=== PATIENT | female | born 1970 | race American Indian/Alaskan Native ===

== ENCOUNTER 2016-12-08 07:25 | Emergency (ER) | payer OTHER ==
[2016-12-08 07:45] VITALS: BMI 22.0
[2016-12-08] MEDS ORDERED: Sodium Chloride 0.9% 1,000 ML IV STA (07:45)
[2016-12-08 07:47] VITALS: RESP 18; TEMP 98
[2016-12-08 08:30] LABS: BASO # 0.1 K/uL (0.0-0.2); EOS # 0.1 K/uL (0.0-0.7); EOS % 1.2 % (0.0-4.0); HEMOGLOBIN 12.7 g/dL (12.0-16.0); LYMPH # 1.9 K/uL (1.0-4.3); LYMPH % 30.5 % (20.0-40.0); MEAN CELL VOLUME 83.5 fl (81.0-99.0); MEAN CORPUSCULAR HEMOGLOBIN 28.2 pg (27.0-31.0); MEAN CORPUSCULAR HGB CONC 33.8 g/dL (33.0-37.0); MEAN PLATELET VOLUME 8.6 fl (7.2-11.7); MONO # 0.5 K/uL (0.0-0.8); MONO % 7.8 % (0.0-10.0); NEUT # 3.7 K/uL (1.8-7.0); NEUT % 59.5 % (50.0-75.0); NRBC % 0.1 % (0.0-0.0); RBC 4.5 Mil/uL (3.80-5.20); RED CELL DISTRIBUTION WIDTH 13.4 % (11.5-14.5); WHITE BLOOD COUNT 6.2 K/uL (4.8-10.8)
[2016-12-08 08:43] LABS: ALB/GLOB RATIO 1.3 (1.0-2.1); ALBUMIN 4.1 g/dL (3.5-5.0); ALT/SGPT 26 U/L (9-52); AST/SGOT 23 U/L (14-36); BLOOD UREA NITROGEN 14 mg/dl (7-17); CALCIUM 9.7 mg/dL (8.4-10.2); GFR AFRICAN-AMERICAN > 60; GFR NON-AFRICAN AMERICAN > 60
[2016-12-08 08:56] VITALS: BP 128/76; PULSE 81; O2SAT 100
--- NOTE | 2016-12-08 09:04 | ED PDOC ---
Syncope/Near Syncope/Dizziness Time Seen by Provider: 12/08/16 07:29 Chief Complaint (Nursing): Dizziness/Lightheaded Chief Complaint (Provider): light headed History Per: Patient History/Exam Limitations: no limitations Additional Complaint(s): Aimee Myrick is a 46 year old female, with a previous medical history of diabetes and hypertension, who presents to the ED with complaints of dizziness associated with lightheadedness, mild headache and one episode of vomiting while at work this morning. She denies any diarrhea, abdominal pain, chest pain , shortness of breath, numbness, tingling or changes in vision. Patient reports experiencing similar symptoms one month ago and states to changing her hypertensive and diabetes medication approximately a month and a half ago. PMD: Dr. Campbell Past Medical History Reviewed: Historical Data, Nursing Documentation, Vital Signs Vital Signs: Last Vital Signs Temp 98 F 12/08/16 08:55 Pulse 81 12/08/16 08:55 Resp 18 12/08/16 08:55 BP 128/76 12/08/16 08:55 Pulse Ox 100 12/08/16 08:55 - Medical History PMH: Back Problems, Diabetes, HTN Denies: Depression, Chronic Kidney Disease - Surgical History Surgical History: - Family History Family History: States: Unknown Family Hx - Living Arrangements Living Arrangements: With Family - Social History Alcohol: None Drugs: Denies - Immunization History Hx Tetanus Toxoid Vaccination: No Hx Influenza Vaccination: Yes Hx Pneumococcal Vaccination: No - Home Medications Home Medications: Ambulatory Orders Medication Instructions Recorded Losartan/Hydrochlorothiazide 1 tab PO ONCE 08/22/14 [Losartan Potassium-Hydrochlorothiazide 12.5 M] Glimepiride 4 mg PO DAILY 07/27/15 Ibuprofen [Motrin] 400 mg PO Q6 #30 tab 03/01/16 - Allergies Allergies/Adverse Reactions: Allergies Allergy/AdvReac Type Severity Reaction Status Date / Time No Known Allergies Allergy Verified 11/22/15 20:42 Review of Systems ROS Statement: Except As Marked, All Systems Reviewed And Found Negative Eyes: Negative for: Vision Change Cardiovascular: Negative for: Chest Pain Respiratory: Negative for: Shortness of Breath Gastrointestinal: Positive for: Nausea, Vomiting. Negative for: Abdominal Pain , Diarrhea Neurological: Positive for: Headache, Dizziness. Negative for: Numbness, Other (tingling ) Physical Exam - Reviewed Nursing Documentation Reviewed: Yes Vital Signs Reviewed: Yes - Physical Exam Appears: Positive for: Well, Non-toxic, No Acute Distress Head Exam: Positive for: ATRAUMATIC, NORMAL INSPECTION, NORMOCEPHALIC Skin: Positive for: Normal Color, Warm, Dry Eye Exam: Positive for: Normal appearance, EOMI, PERRL. Negative for: Nystagmus ENT: Positive for: Normal ENT Inspection Neck: Positive for: Normal, Painless ROM Cardiovascular/Chest: Positive for: Regular Rate, Rhythm Respiratory: Positive for: CNT, Normal Breath Sounds Gastrointestinal/Abdominal: Positive for: Normal Exam, Bowel Sounds, Soft. Negative for: Tenderness Back: Positive for: Normal Inspection. Negative for: L CVA Tenderness, R CVA Tenderness Extremity: Positive for: Normal ROM. Negative for: Tenderness, Pedal Edema Neurologic/Psych: Positive for: Alert, spinning frame changer II-XII (intact ), Oriented. Negative for: Motor/Sensory Deficits, Facial Droop - Laboratory Results Result Diagrams: 12/08/16 08:00 12/08/16 08:00 Interpretation Of Abn Labs: 372 - ECG ECG: Positive for: Interpreted By Me, Viewed By Me ECG Rhythm: Positive for: Normal QRS, Sinus Rhythm, Nonspecific Changes Interpretation Of Abn EKG: similar to old O2 Sat by Pulse Oximetry: 100 (RA) Pulse Ox Interpretation: Normal - CT Scan/US head Other Rad Studies (CT/US): Read By Radiologist Other Rad Interpretation: no acute - Progress ED Course And Treament: 1047: Pt. stable. AAOx3. Smiling. Talking on the phone. Tolerated PO. Feels comfortable going home. Fu with pcp. Ambulated with no issues. No dizziness. 1123: Pt. pulled out IV by self. Will give insulin SC. Medical Decision Making Medical Decision Making: Initial Plan * CT head w/o contrast * EKG * urine dipstick * Urine * Antivert 20 mg PO * zofran 4 mg IV * IV NS 1,000 ml at 1,000 ml/hr * reevaluation 09:27 CT head FINDINGS: HEMORRHAGE: No intracranial hemorrhage. BRAIN: No mass effect or edema. No atrophy or chronic microvascular ischemic changes. VENTRICLES: Unremarkable. No hydrocephalus. CALVARIUM: Unremarkable. PARANASAL SINUSES: Unremarkable as visualized. No significant inflammatory changes. MASTOID AIR CELLS: Unremarkable as visualized. No inflammatory changes. OTHER FINDINGS: None. IMPRESSION: No intracranial mass, hemorrhage or evidence of acute infarct. Scribe Attestation: Documented by Leti Vann, acting as a scribe for Theron Weaver MD. Provider Scribe Attestation: All medical record entries made by the Scribe were at my direction and personally dictated by me. I have reviewed the chart and agree that the record accurately reflects my personal performance of the history, physical exam, medical decision making, and the department course for this patient. I have also personally directed, reviewed, and agree with the discharge instructions and disposition. Disposition - Clinical Impression Clinical Impression: Dizziness, Hyperglycemia - Patient ED Disposition Is Patient to be Admitted: No Counseled Patient/Family Regarding: Studies Performed, Diagnosis, Need For Followup - Disposition Referrals: [facility] [Outside] - 12/09/16 Disposition: Routine/Home Disposition Time: 10:48 Condition: STABLE Additional Instructions: Return if not better in 3 days. See your doctor today for follow up and further medication management of your diabetes. Instructions: Diabetic Hyperglycemia (ED), Dizziness (ED) Forms: [facility] ([place]), [facility] ED School/Work Excuse
--- NOTE | 2016-12-08 09:29 | CT ---
PROCEDURE: CT HEAD WITHOUT CONTRAST. HISTORY: headache COMPARISON: 12/17/2013 TECHNIQUE: Axial computed tomography images were obtained through the head/brain without intravenous contrast. Radiation dose: Total exam DLP = 857.65 mGy-cm. This CT exam was performed using one or more of the following dose reduction techniques: Automated exposure control, adjustment of the mA and/or kV according to patient size, and/or use of iterative reconstruction technique. FINDINGS: HEMORRHAGE: No intracranial hemorrhage. BRAIN: No mass effect or edema. No atrophy or chronic microvascular ischemic changes. VENTRICLES: Unremarkable. No hydrocephalus. CALVARIUM: Unremarkable. PARANASAL SINUSES: Unremarkable as visualized. No significant inflammatory changes. MASTOID AIR CELLS: Unremarkable as visualized. No inflammatory changes. OTHER FINDINGS: None. IMPRESSION: No intracranial mass, hemorrhage or evidence of acute infarct.
--- NOTE | 2016-12-08 10:10 | CARD ---
APPROVED REPORT EKG Measurement Heart [id number] <Conclusion> Normal sinus rhythm
[2016-12-08] MEDS ORDERED: Insulin Regular 100 units/ml IV STA (10:45)
[2016-12-08] MEDS ORDERED: Insulin Regular 100 units/ml SC STA (11:24)
[2016-12-08] MEDS ORDERED: Insulin Regular 100 units/ml ONE (11:37)
== END 2016-12-08 12:15 | disposition home or self-care (01) ==
LOC: H.ER 07:25
DX: R42 Dizziness and giddiness (principal); E11.65 Type 2 diabetes mellitus with hyperglycemia; I10 Essential (primary) hypertension